=== PATIENT | female | born 1945 | race Caucasian/White ===

== ENCOUNTER 2023-03-22 13:06 | Emergency (ER) | payer OTHER, MEDICAID ==
[~2023-03-22] VITALS: Ht 160 cm; Wt 78.1 kg
[2023-03-22 13:13] VITALS: O2SAT 97
[2023-03-22 13:47] LABS: BASOPHILS % 0.7 % (0.0-2.0); EOSINOPHILS % 2.4 % (0.0-5.0); LYMPHOCYTES % 29.8 % (20.0-50.0); MEAN CORPUSCULAR HEMOGLOBIN 28.4 pg (28.0-32.0); MEAN CORPUSCULAR HGB CONC 33.4 g/dL (31.0-37.0); MEAN CORPUSCULAR VOLUME 85.1 fL (81.0-99.0); MEAN PLATELET VOLUME 7.3 fl (7.4-10.4); MONOCYTES % 7.1 % (2.0-8.0); PLATELET 266 x1000/uL (130-400); RED BLOOD CELL COUNT 4.23 mill/uL (4.2-5.4); RED CELL DISTRIBUTION WIDTH 14.9 % (11.6-14.6); WHITE BLOOD COUNT 7.7 x1000/uL (4.5-11.0)
[2023-03-22 13:53] LABS: CHLORIDE 104 mEq/L (98-107); INDEX HEMOLYSI 1 (1-3); INDEX ICTERIC 1 (1-4); INDEX LIPEMIC 1 (1-3); POTASSIUM 3.8 mEq/L (3.5-5.1); SODIUM 137 mEq/L (136-145)
[2023-03-22 13:58] LABS: PARTIAL THROMBOPLASTIN TIME 24.8 sec (23.4-31.0); PROTHROMBIN TIME 10.9 sec (9.6-11.0)
[2023-03-22] MEDS ORDERED: IOHEXOL-300 50 ML BOTTLE IV ONE (14:01)
[2023-03-22] MEDS ORDERED: IOHEXOL-350 100 ML BOTTLE ONE (14:02)
[2023-03-22 14:07] LABS: ALANINE AMINOTRANSFERASE 23 IU/L (13-61); ALBUMIN 3.6 g/dL (3.4-5.0); ASPARTATE AMINOTRANSFERASE 13 IU/L (15-37); BILIRUBIN TOTAL 0.3 mg/dL (0.1-1.0); CALCIUM 8.8 mg/dL (8.5-10.1); CARBON DIOXIDE 26 mEq/L (21-32); CREATININE 0.5 mg/dL (0.6-1.3); NT PRO B-TYPE NATRIURETIC PEP 161 pg/mL (5-125); PROTEIN TOTAL 7.4 g/dL (6.0-8.3); TROPONIN I HIGH SENSITIVITY 4 ng/L (<54); UREA NITROGEN BLOOD 12 mg/dL (7-21)
[2023-03-22] MEDS ORDERED: ASPIRIN 325MG EC TABLET PO ONE (15:15)
[2023-03-22 15:27] LABS: GLUCOSE 93 mg/dL (70-105)
[2023-03-22 20:00] VITALS: BP 129/56; PULSE 66; RESP 25; TEMP 98.4
== END 2023-03-22 20:29 | disposition short-term general hospital (02) ==
LOC: ER 13:25 → EDBD 13:25 → ER 20:29
DX: R20.0 Anesthesia of skin (principal); R51.9 Headache, unspecified; E78.00 Pure hypercholesterolemia, unspecified; I10 Essential (primary) hypertension; E11.9 Type 2 diabetes mellitus without complications
CPT/HCPCS: 99291; 70496; 71045; 80053; 83880; 85025; 85610; 85730; 86850; 86900; 86901; 84484; 36415; 70498; 93005; 70450; Q9967 ×2